=== PATIENT | male | born 2000 | race Caucasian/White ===

== ENCOUNTER 2023-02-16 19:49 | Observation (INO) ==
[2023-02-16] MEDS ORDERED: ONDANSETRON INJ 2 MG/ML 2 ML VIAL IV STA (20:07)
[2023-02-16] MEDS ORDERED: SODIUM CHLORIDE 0.9% 1,000 ML IV ONE (20:07)
[2023-02-16] MEDS ORDERED: KETOROLAC TROMETHAMINE 15 MG/ML VIAL IV ONE (20:08)
--- NOTE | 2023-02-16 20:11 | Emergency Department Note ---
Impression & Plan Acute appendicitis, Abdominal pain, Leukocytosis ED Provider Note NAME: SHANNAN IYER AGE: 22 SEX: M : 2000 ARRIVES VIA: Walk-In INFORMANT: Patient ED PROVIDER(S): Pk Sullivan DO CHIEF COMPLAINT: abdominal pain HPI: Patient is a 72-year-old male who presents ER for periumbilical abdominal pain that started today around lunch. He admits to nausea vomiting. No diar raji. Pain comes and goes in waves. It is sharp and stabbing in nature. No previous surgeries. No headache or change in vision. No chest pain or shortness of breath. Only past medical history is asthma. He notes he was positive for COVID about 7 days ago. His roommate is also positive PAST MEDICAL HISTORY:See Below PAST SURGICAL HISTORY:See Below FAMILY HISTORY:See Below SOCIAL HISTORY:See Below HOME MEDICATIONS:See Below ALLERGIES:See Below VITALS:See Below PHYSICAL EXAMINATION: GENERAL: Sitting up in bed, alert, well appearing, well nourished, no distress, non-toxic EYE EXAM: normal conjunctiva. OROPHARYNX: no exudate, no erythema, lips, buccal mucosa, and tongue normal and mucous membranes are moist NECK: supple, no nuchal rigidity, no adenopathy, non-tender LUNGS: Clear to auscultation. Normal chest wall mechanics HEART: no murmurs, S1 normal and S2 normal ABDOMEN: abdomen soft, tenderness in the right lower quadrant, normo-active bowel sounds, no masses, no rebound or guarding. UPPER EXTREMITIES: upper extremities are grossly normal. LOWER EXTREMITIES: No pitting edema. NEURO EXAM: Normal sensorium, cranial nerves II-XII grossly intact, normal speech, no gross weakness of arms, no gross weakness of legs. MEDICAL DECISION MAKING: Patient is a 22-year-old male who presents the ER for the above-stated complaint. IV was established blood work was obtained. Labs show mild leukocytosis of 14,000. No significant anemia. BMP with LFTs bilirubin was unremarkable. Lipase was normal. UA was negative. CT abdomen pelvis confirms acute appendicitis. He was given IV fluids and antibiotics. Updated bedside. Also updated parents at bedside. Discussed with general surgery and he evaluated the patient and they will go to the OR. Triage Nursing notes reviewed. Limited review of prior medical records performed Vital Signs: reviewed and remarkable for no significant abnormalities Differential diagnosis: Differential diagnoses includes but is not limited to gastritis, peptic ulcer disease, GERD, gallbladder disease, pancreatitis, small bowel obstruction, appendicitis, diverticulitis, hernia, urinary tract infection, torsion, perforation, trauma, infectious. ER treatment provided: See below Diagnostics interpreted by me include EKG and cardiac monitoring as listed below: -Cardiac Monitoring: An order was placed for continuous cardiac monitoring. The monitor shows a rate of 70 with sinus rhythm. -ECG: none -Laboratory studies:Interpreted by me as stated above in MDM and shown below. Imaging studies: Xrays: As interpreted by me:none CTs show: none Consultation(s): As described in MDM Procedures:none Critical Care: None Past Med/Surg History Medical History No pertinent past medical history Social History Smoking Status: Never smoker Preferred Language: Singaporean Feels Safe at Home: Yes Allergies Allergies Allergy/AdvReac Type Severity Reaction Status Date / Time No Known Allergies Allergy Verified 02/16/23 20:47 Home Meds Home Medications Medication Instructions Recorded Confirmed albuterol sulfate 90 mcg/actuation 2 puff inhalation DIRECTED PRN 02/16/23 02/16/23 aerosol inhaler Shortness Of Breath Or Wheezing Results & Data (ED) Vital Signs Vital Signs - 24 hr 02/16/23 19:56 02/16/23 20:11 02/16/23 23:17 Temperature 36.9 C Temperature Source Temporal Artery Scan Pulse Rate 82 Pulse Rate [Apical] 72 Respiratory Rate 18 18 Respiratory Effort / Characteristics Non-Labored Spontaneous Respiratory Depth Normal Blood Pressure 122/75 Blood Pressure [Left Arm] 113/63 Blood Pressure Mean 90 Blood Pressure Mean [Left Arm] 79 Pulse Oximetry 98 94 100 Oxygen Delivery Method Room Air Room Air Room Air Sepsis Recent Fever Within 48 Hours Yes Sepsis New/Unexplained Change in Mental Status No Sepsis Action Taken by Nursing No Action Required 02/16/23 23:40 Temperature Temperature Source Pulse Rate 63 Pulse Rate [Apical] Respiratory Rate Respiratory Effort / Characteristics Respiratory Depth Blood Pressure Blood Pressure [Left Arm] Blood Pressure Mean Blood Pressure Mean [Left Arm] Pulse Oximetry Oxygen Delivery Method Sepsis Recent Fever Within 48 Hours Sepsis New/Unexplained Change in Mental Status Sepsis Action Taken by Nursing Laboratory Data 02/16/23 20:15 02/16/23 20:15 Lab Results 02/16/23 02/16/23 02/16/23 Range/Units 20:15 20:15 20:15 WBC 14.86 H (4.8-10.8) K/ul RBC 4.67 L (4.70-6.10) M/uL Hgb 14.0 (14.0-18.0) g/dl Hct 39.6 L (42.0-52.0) % MCV 84.8 (80.0-100.0) fL MCH 30.0 (25.0-34.0) pg MCHC 35.4 (32.0-36.0) g/dL RDW Std Deviation 35.8 L (36.4-46.3) fL RDW Coeff of Sunitha 11.7 (11.5-14.5) % Plt Count 220 (130-400) K/uL MPV 9.3 L (9.4-12.4) fL Immature Gran % (Auto) 0.5 % Neut % (Auto) 86.7 % Lymph % (Auto) 3.2 % [place] % (Auto) 9.4 % Eos % (Auto) 0.1 % Baso % (Auto) 0.1 % Neut # (Auto) 12.89 H (1.40-6.50) K/uL Lymph # (Auto) 0.47 L (1.20-3.40) K/uL [place] # (Auto) 1.40 H (0.11-0.59) K/uL Eos # (Auto) 0.01 (0.00-0.50) K/uL Baso # (Auto) 0.02 (0.00-0.20) K/uL Immature Gran # (Auto) 0.07 (0.01-0.20) K/uL Sodium 133 L (136-145) mmol/L Potassium 3.8 (3.5-5.1) mmol/L Chloride 99 (98-107) mmol/L Carbon Dioxide 26 (21-32) mmol/L Anion Gap 8 (3-11) BUN 18 (6-23) mg/dl Creatinine 1.09 (0.6-1.4) mg/dl Est Cr Clr Drug Dosing 110.7 ml/min Est GFR ( Amer) 111.9 ml/min Est GFR (Non-Af Amer) 96.5 ml/min BUN/Creatinine Ratio 16.5 (10-20) Glucose 154 H (70-99(Fasting)) mg/dl Calcium 9.3 (8.6-10.3) mg/dl Total Bilirubin 1.1 H (0.2-1.0) mg/dl AST 21 (13-39) U/L ALT 17 (7-52) U/L Alkaline Phosphatase 68 (34-104) U/L Total Protein 7.1 (6.0-8.3) gm/dl Albumin 4.8 (3.4-5.0) gm/dl Globulin 2.3 L (2.5-4.0) gm/dl Albumin/Globulin Ratio 2.1 H (0.9-2) Lipase 5 L (11-82) U/L Urine Color Yellow Urine Appearance Clear (Clear) Urine pH 8.5 H (4.5-7.5) Ur Specific [place] 1.021 (1.000-1.030) Urine Protein Negative (Negative) Urine Glucose (UA) Negative (Negative) Urine Ketones Negative (Negative) Urine Blood Negative (Negative) Urine Nitrite Negative (Negative) Urine Bilirubin Negative (Negative) Urine Urobilinogen Negative (Negative) Ur Leukocyte Esterase Negative (Negative) Administered Medications Discontinued Medications Sodium Chloride (Nss) 1,000 mls @ 999 mls/hr IV .Q1H1M ONE Stop: 02/16/23 21:07 Last Infusion: 02/16/23 22:49 Dose: 0 mls/hr Documented By: Admin: 02/16/23 21:27 Dose: 999 mls/hr Documented By: QGV Cefoxitin Sodium (Mefoxin) 2,000 mg in 60 mls @ 100 mls/hr IV NOW STA Stop: 02/17/23 00:15 Last Admin: 02/16/23 23:59 Dose: 100 mls/hr Documented By: BS Ioversol (Optiray 320 100ml) 89 ml IV ONCE ONE Stop: 02/16/23 20:31 Last Admin: 02/16/23 20:30 Dose: 89 ml Documented By: EAMariela Ketorolac Tromethamine (Ketorolac Tromethamine 15 Mg/Ml Vial) 15 mg IV NOW ONE Stop: 02/16/23 20:09 Last Admin: 02/16/23 20:15 Dose: 15 mg Documented By: QGV Ondansetron HCl (Ondansetron Inj 2 Mg/Ml 2 Ml Vial) 4 mg IV NOW STA Stop: 02/16/23 20:08 Last Admin: 02/16/23 20:15 Dose: 4 mg Documented By: QGV Imaging Data Radiologist's Impression: Abdomen/Pelvis CT 02/16/23 20:07 CT SCAN OF THE ABDOMEN AND PELVIS WITH IV CONTRAST CLINICAL HISTORY: Periumbilical abdominal pain. Vomiting. COMPARISON STUDY: No priors. TECHNIQUE: Following the IV administration of 89 cc of Optiray 320, CT scan of the abdomen and pelvis is performed from the lung bases to the proximal femora. Images are reviewed in the axial, sagittal, and coronal planes. IV contrast was administered without complication. A dose lowering technique was utilized adhering to the principles of ALARA. CT DOSE: 635.97 mGy.cm FINDINGS: Lung bases: The heart is normal in size and without pericardial effusion. The lung bases are clear. Liver: The contrast-enhanced liver is normal in size, contour, and attenuation. There is no intrahepatic biliary ductal dilatation. The hepatic veins and portal veins are patent. Gallbladder: Unremarkable. Spleen: Normal in size and attenuation. Pancreas: Unremarkable. Adrenal glands: Unremarkable. Kidneys: The contrast enhanced kidneys are normal in size and without hydronephrosis. The kidneys enhance symmetrically. Abdominal vasculature: The abdominal aorta is normal in course and caliber. Bowel: There is no bowel obstruction. Mild to moderate fecal retention is seen throughout the colon. The appendix appears dilated and fluid-filled, measuring up to 9 mm in diameter as seen on axial image #242. The appendiceal wall appears mildly thickened and there is faint periappendiceal inflammation. Peritoneum: There is no intraperitoneal free air or abdominal ascites. Lymphadenopathy: None. Pelvic viscera: The bladder is decompressed and appears thick-walled. The prostate and seminal vesicles are normal as visualized. Skeletal structures: No lytic or blastic lesions are seen. IMPRESSION: 1. Findings are suspicious for mild acute appendicitis. Surgical evaluation is advised. 2. There is no evidence of abscess or perforation. 3. The bladder is decompressed and appears thick-walled. Correlate with clinical findings and urinalysis. 4. Additional findings as above. ACT 112: Negative or not required by law. Electronically signed by: Elio Paredes M.D. 02/16/2023 11:35 PM Discharge Plan Visit Data Chief Complaint: Abdominal Pain Stated Complaint: ADOMINAL PAIN, VOMITING ED Provider: Pk Sullivan Discharge Problem: Acute appendicitis, Abdominal pain, Leukocytosis Forms Stand Alone Forms: [facility] Prescriptions Prescriptions: No Action albuterol sulfate 90 mcg/actuation Hfa Aerosol Inhaler 2 puff INHALATION DIRECTED PRN (Reason: Shortness Of Breath Or Wheezing) Referrals [facility] [Non-Staff] -
[2023-02-16 20:24] LABS: Basophils # (auto) 0.02 K/uL (0.00-0.20); Basophils % (auto) 0.1 %; Eosinophils # (auto) 0.01 K/uL (0.00-0.50); Eosinophils % (auto) 0.1 %; Hematocrit (blood only) 39.6 % (42.0-52.0); Immature Granulocytes # (auto) 0.07 K/uL (0.01-0.20); Immature Granulocytes % (auto) 0.5 %; Lymphocytes # (auto) 0.47 K/uL (1.20-3.40); Lymphocytes % (auto) 3.2 %; Mean Corpuscular Hgb Conc 35.4 g/dL (32.0-36.0); Mean Corpuscular Volume 84.8 fL (80.0-100.0); Mean Platelet Volume 9.3 fL (9.4-12.4); Monocytes % (auto) 9.4 %; Neutrophils # (auto) 12.89 K/uL (1.40-6.50); Neutrophils % (auto) 86.7 %; Platelet Count 220 K/uL (130-400); RDW Coefficient of Variation 11.7 % (11.5-14.5); RDW Standard Deviation 35.8 fL (36.4-46.3); Red Blood Count 4.67 M/uL (4.70-6.10); White Blood Count 14.86 K/ul (4.8-10.8)
[2023-02-16 20:30] LABS: Appearance Urine Clear (Clear); Bilirubin Urine Negative (Negative); Blood Urine Negative (Negative); Color Urine Yellow; Glucose Urine UA Negative (Negative); Ketones Urine Negative (Negative); Leukocyte Esterase Urine Negative (Negative); Nitrite Urine Negative (Negative); Protein Urine Negative (Negative); Specific Gravity Urine 1.021 (1.000-1.030); Urobilinogen Urine Negative (Negative); pH Urine 8.5 (4.5-7.5)
[2023-02-16] MEDS ORDERED: OPTIRAY 320 100ml IV ONE (20:30)
[2023-02-16 20:37] LABS: Albumin Level 4.8 gm/dl (3.4-5.0); Bilirubin,Total 1.1 mg/dl (0.2-1.0); Calcium 9.3 mg/dl (8.6-10.3); Potassium 3.8 mmol/L (3.5-5.1)
[2023-02-16 20:44] LABS: Albumin Globulin Ratio 2.1 (0.9-2); BUN Creatinine Ratio 16.5 (10-20); Creatinine Clr Calc Pharmacy 110.7 ml/min; Est GFR (African American) 111.9 ml/min; Est GFR (Non-African American) 96.5 ml/min; Globulin 2.3 gm/dl (2.5-4.0); Total Protein 7.1 gm/dl (6.0-8.3)
--- NOTE | 2023-02-16 23:38 | CT Scan Report ---
CT SCAN OF THE ABDOMEN AND PELVIS WITH IV CONTRAST CLINICAL HISTORY: Periumbilical abdominal pain. Vomiting. COMPARISON STUDY: No priors. TECHNIQUE: Following the IV administration of 89 cc of Optiray 320, CT scan of the abdomen and pelvi s is performed from the lung bases to the proximal femora. Images are reviewed in the axial, sagittal , and coronal planes. IV contrast was administered without complication. A dose lowering technique wa s utilized adhering to the principles of ALARA. CT DOSE: 635.97 mGy.cm FINDINGS: Lung bases: The heart is normal in size and without pericardial effusion. The lung bases are clear. Liver: The contrast-enhanced liver is normal in size, contour, and attenuation. There is no intrahepa tic biliary ductal dilatation. The hepatic veins and portal veins are patent. Gallbladder: Unremarkable. Spleen: Normal in size and attenuation. Pancreas: Unremarkable. Adrenal glands: Unremarkable. Kidneys: The contrast enhanced kidneys are normal in size and without hydronephrosis. The kidneys enh ance symmetrically. Abdominal vasculature: The abdominal aorta is normal in course and caliber. Bowel: There is no bowel obstruction. Mild to moderate fecal retention is seen throughout the colon. The appendix appears dilated and fluid-filled, measuring up to 9 mm in diameter as seen on axial imag e #242. The appendiceal wall appears mildly thickened and there is faint periappendiceal inflammation . Peritoneum: There is no intraperitoneal free air or abdominal ascites. Lymphadenopathy: None. Pelvic viscera: The bladder is decompressed and appears thick-walled. The prostate and seminal vesicl es are normal as visualized. Skeletal structures: No lytic or blastic lesions are seen. IMPRESSION: 1. Findings are suspicious for mild acute appendicitis. Surgical evaluation is advised. 2. There is no evidence of abscess or perforation. 3. The bladder is decompressed and appears thick-walled. Correlate with clinical findings and urinaly sis. 4. Additional findings as above. ACT 112: Negative or not required by law. Electronically signed by: Elio Paredes M.D. 02/16/2023 11:35 PM
[2023-02-16] MEDS ORDERED: cefOXitin 2,000 MG/60 ML BAG IV STA (23:40)
--- NOTE | 2023-02-17 00:41 | Surgery Consultation ---
Date of Consultation February 17, 2023 Assessment & Plan (1) Acute appendicitis: Assessment: Patient is a 22 years old gentleman who presented to the ED with a 12-hour history of periumbilical pain. Recent nausea and vomiting. WBC 14,000. CT scan diagnosis possible early acute appendicitis. Plan: I recommend to do a laparoscopy appendectomy possible open. I did talk to patient and patient father about benefits the risk and alternatives of the procedure. I indicated the risks may include but not limited to such as bleeding, infection, abscess, injury to other organs, incisional hernia, bowel obstruction. Patient and his father understand. they agreed to proceed procedure. Patient signed informed consent. I answered all questions. pre-op IV antibiotic. History of Present Illness Reason for Consultation: Acute appendicitis Requesting Physician: Pk Santana History of Present Illness CC: Acute abdominal pain HPI: Patient is a 22 years old gentleman who presented to ED with 12-hour history of periumbilical pain, with nausea and vomiting. The pain was a sharp around the periumbilical area. The pain does not radiate to the back. Patient denies any fever or chills. No diarrhea. No chest pain. No shortness of breath. Patient reports positive for COVID 7 days ago. He is a roommate also positive. Now patient denies any cough. Labs shows WBC 14,000. CT scan showed-early acute appendicitis. Allergies Allergy/AdvReac Type Severity Reaction Status Date / Time No Known Allergies Allergy Verified 02/16/23 20:47 Home Medications Medication Instructions Recorded Confirmed Type albuterol sulfate 90 mcg/actuation 2 puff inhalation DIRECTED PRN 02/16/23 02/16/23 History aerosol inhaler Shortness Of Breath Or Wheezing Patient History Medical History No pertinent past medical history Social History Smoking Status: Never smoker Preferred Language: Serbian Feels Safe at Home: Yes Review of Systems Constitutional: as per Subjective / HPI Eyes: as per Subjective / HPI Respiratory: Asthma Cardiovascular: as per Subjective / HPI Gastrointestinal: as per Subjective / HPI Genitourinary: + as per Subjective / HPI Musculoskeletal: as per Subjective / HPI Neurologic: as per Subjective / HPI Psychiatric: as per Subjective / HPI Endocrine: as per Subjective / HPI Physical Exam Constitutional: WD/WN, vitals as above Eyes: PERRL, conjunctivae normal, anicteric sclerae Neck: trachea midline, no thyromegaly Respiratory: normal respiratory effort, lungs clear to auscultation Cardiovascular: RRR, no murmur, no edema Gastrointestinal (Abdomen): soft. tenderness at RLQ, no rebound pain, no distend, BS +. Musculoskeletal: no cyanosis or clubbing, extremities motor strength 5/5 Neurologic: patellar DTR's 2+ bilat, sensation intact Psychiatric: A+Ox3, euthymic affect Results & Data Vital Signs (Past 12 Hours) Vital Signs Temp Pulse Pulse Resp BP BP Pulse Ox 02/16/23 23:40 63 02/16/23 23:17 72 18 113/63 100 02/16/23 20:11 94 02/16/23 19:56 36.9 C 82 18 122/75 98 O2 Del Method 02/16/23 23:40 02/16/23 23:17 Room Air 02/16/23 20:11 Room Air 02/16/23 19:56 Room Air Laboratory Results Lab Results 02/16/23 02/16/23 02/16/23 Range/Units 20:15 20:15 20:15 WBC 14.86 H (4.8-10.8) K/ul RBC 4.67 L (4.70-6.10) M/uL Hgb 14.0 (14.0-18.0) g/dl Hct 39.6 L (42.0-52.0) % MCV 84.8 (80.0-100.0) fL MCH 30.0 (25.0-34.0) pg MCHC 35.4 (32.0-36.0) g/dL RDW Std Deviation 35.8 L (36.4-46.3) fL RDW Coeff of Sunitha 11.7 (11.5-14.5) % Plt Count 220 (130-400) K/uL MPV 9.3 L (9.4-12.4) fL Immature Gran % (Auto) 0.5 % Neut % (Auto) 86.7 % Lymph % (Auto) 3.2 % [place] % (Auto) 9.4 % Eos % (Auto) 0.1 % Baso % (Auto) 0.1 % Neut # (Auto) 12.89 H (1.40-6.50) K/uL Lymph # (Auto) 0.47 L (1.20-3.40) K/uL [place] # (Auto) 1.40 H (0.11-0.59) K/uL Eos # (Auto) 0.01 (0.00-0.50) K/uL Baso # (Auto) 0.02 (0.00-0.20) K/uL Immature Gran # (Auto) 0.07 (0.01-0.20) K/uL Sodium 133 L (136-145) mmol/L Potassium 3.8 (3.5-5.1) mmol/L Chloride 99 (98-107) mmol/L Carbon Dioxide 26 (21-32) mmol/L Anion Gap 8 (3-11) BUN 18 (6-23) mg/dl Creatinine 1.09 (0.6-1.4) mg/dl Est Cr Clr Drug Dosing 110.7 ml/min Est GFR ( Amer) 111.9 ml/min Est GFR (Non-Af Amer) 96.5 ml/min BUN/Creatinine Ratio 16.5 (10-20) Glucose 154 H (70-99(Fasting)) mg/dl Calcium 9.3 (8.6-10.3) mg/dl Total Bilirubin 1.1 H (0.2-1.0) mg/dl AST 21 (13-39) U/L ALT 17 (7-52) U/L Alkaline Phosphatase 68 (34-104) U/L Total Protein 7.1 (6.0-8.3) gm/dl Albumin 4.8 (3.4-5.0) gm/dl Globulin 2.3 L (2.5-4.0) gm/dl Albumin/Globulin Ratio 2.1 H (0.9-2) Lipase 5 L (11-82) U/L Urine Color Yellow Urine Appearance Clear (Clear) Urine pH 8.5 H (4.5-7.5) Ur Specific [place] 1.021 (1.000-1.030) Urine Protein Negative (Negative) Urine Glucose (UA) Negative (Negative) Urine Ketones Negative (Negative) Urine Blood Negative (Negative) Urine Nitrite Negative (Negative) Urine Bilirubin Negative (Negative) Urine Urobilinogen Negative (Negative) Ur Leukocyte Esterase Negative (Negative) Diagnostic Findings CT SCAN OF THE ABDOMEN AND PELVIS WITH IV CONTRAST CLINICAL HISTORY: Periumbilical abdominal pain. Vomiting. COMPARISON STUDY: No priors. TECHNIQUE: Following the IV administration of 89 cc of Optiray 320, CT scan of the abdomen and pelvis is performed from the lung bases to the proximal femora. Images are reviewed in the axial, sagittal, and coronal planes. IV contrast was administered without complication. A dose lowering technique was utilized adhering to the principles of ALARA. CT DOSE: 635.97 mGy.cm FINDINGS: Lung bases: The heart is normal in size and without pericardial effusion. The lung bases are clear. Liver: The contrast-enhanced liver is normal in size, contour, and attenuation. There is no intrahepatic biliary ductal dilatation. The hepatic veins and portal veins are patent. Gallbladder: Unremarkable. Spleen: Normal in size and attenuation. Pancreas: Unremarkable. Adrenal glands: Unremarkable. Kidneys: The contrast enhanced kidneys are normal in size and without hydronephrosis. The kidneys enhance symmetrically. Abdominal vasculature: The abdominal aorta is normal in course and caliber. Bowel: There is no bowel obstruction. Mild to moderate fecal retention is seen throughout the colon. The appendix appears dilated and fluid-filled, measuring up to 9 mm in diameter as seen on axial image #242. The appendiceal wall appears mildly thickened and there is faint periappendiceal inflammation. Peritoneum: There is no intraperitoneal free air or abdominal ascites. Lymphadenopathy: None. Pelvic viscera: The bladder is decompressed and appears thick-walled. The prostate and seminal vesicles are normal as visualized. Skeletal structures: No lytic or blastic lesions are seen. IMPRESSION: 1. Findings are suspicious for mild acute appendicitis. Surgical evaluation is advised. 2. There is no evidence of abscess or perforation. 3. The bladder is decompressed and appears thick-walled. Correlate with clinical findings and urinalysis. 4. Additional findings as above.
--- NOTE | 2023-02-17 00:44 | History & Physical Bridge Note ---
Date of Service February 17, 2023 History & Physical Bridge Note I have examined the patient, reviewed the History & Physical and in the interval since the performance of the History & Physical I have noted the following changes of clinical significance: no changes noted
--- NOTE | 2023-02-17 00:46 | Anesthesiology Consultation ---
Date of Service February 17, 2023 Assessment & Plan (1) Encounter for pre-operative examination: Chart Review Chart Review: Acceptable Risk for Surgery and Patient NOT seen in Pre Admission Testing Consults Requested none History Surgery Operation Date: 02/17/23 00:10 Proposed Procedures p Laparoscopic Appendectomy - Johanny Canas MD Height/Weight Height: 5 ft 10 in Weight: 73.6 kg Allergies Allergy/AdvReac Type Severity Reaction Status Date / Time No Known Allergies Allergy Verified 02/16/23 20:47 Medications Home Medications Medication Instructions Recorded Confirmed Last Taken albuterol sulfate 90 mcg/actuation 2 puff inhalation DIRECTED PRN 02/16/23 02/16/23 Unknown aerosol inhaler Shortness Of Breath Or Wheezing Past Medical History Medical History No pertinent past medical history Social History Smoking Status: Never smoker Physical Exam Vital Signs Last Vital Signs Temp 98.4 F 02/16/23 19:56 Pulse 63 02/16/23 23:40 Resp 18 02/16/23 23:17 BP 113/63 02/16/23 23:17 Pulse Ox 100 02/16/23 23:17 O2 Del Method Room Air 02/16/23 23:17 Testing Laboratory Results 02/16/23 20:15 02/16/23 20:15 Urine Color Yellow 02/16/23 20:15 Urine Appearance Clear (Clear) 02/16/23 20:15 Urine pH 8.5 (4.5-7.5) H 02/16/23 20:15 Ur Specific [place] 1.021 (1.000-1.030) 02/16/23 20:15 Urine Protein Negative (Negative) 02/16/23 20:15 Urine Glucose (UA) Negative (Negative) 02/16/23 20:15 Urine Ketones Negative (Negative) 02/16/23 20:15 Urine Nitrite Negative (Negative) 02/16/23 20:15 Ur Leukocyte Esterase Negative (Negative) 02/16/23 20:15
[2023-02-17] MEDS ORDERED: ROCURONIUM BROMIDE 10 MG/ML 5 ML VIAL IV ONE (00:49)
[2023-02-17] MEDS ORDERED: DEXAMETHASONE SOD INJ 4 MG/ML VIAL ONE (00:49)
[2023-02-17] MEDS ORDERED: MIDAZOLAM HCL 1 MG/ML 2ML VIAL ONE (00:49)
[2023-02-17] MEDS ORDERED: ONDANSETRON INJ 2 MG/ML 2 ML VIAL ONE (00:49)
[2023-02-17] MEDS ORDERED: fentaNYL citrate PF 100 MCG/2 ML VIAL ONE (00:49)
[2023-02-17] MEDS ORDERED: LIDOCAINE 2% 20 MG/ML 5 ML SYR IV ONE (00:49)
[2023-02-17] MEDS ORDERED: PROPOFOL IV EMULSION 10 MG/ML 20 ML VIAL IV ONE (00:49)
[2023-02-17] MEDS ORDERED: BACITRACIN OINT 14 GM TUBE ONE (01:02)
[2023-02-17] MEDS ORDERED: LIDOCAINE 1% LOCAL 20 ML VIAL ONE (01:03)
[2023-02-17] MEDS ORDERED: BUPIVACAINE 0.5 % 5 MG/1 ML MPF 30ML VIAL ONE (01:03)
[2023-02-17] MEDS ORDERED: ATROPINE SULFATE 0.1 MG/ML 10ML SYR IV PRN (01:36)
[2023-02-17] MEDS ORDERED: fentaNYL citrate PF 100 MCG/2 ML VIAL IV PRN (01:36)
[2023-02-17] MEDS ORDERED: ONDANSETRON INJ 2 MG/ML 2 ML VIAL IV PRN (01:36)
[2023-02-17] MEDS ORDERED: ePHEDrine sulfate 50 MG/ML AMP IV PRN (01:36)
[2023-02-17] MEDS ORDERED: SUCCINYLCHOLINE CHLORIDE 20 MG/ML 10 ML VIAL IV ONE (02:15)
[2023-02-17] MEDS ORDERED: SUGAMMADEX SODIUM 200 MG/2 ML VIAL IV ONE (02:15)
--- NOTE | 2023-02-17 02:40 | Post Operative Brief Note ---
Immediate Post Op Note v1 Date of Surgery February 17, 2023 Pre & Post Diagnosis Operation Date: 02/17/23 00:10 Pre-Op Diagnosis: Acute appendicitis Post-Op Diagnosis: Acute appendicitis I identified the patient and participated in the time-out.: Yes Procedure Operation Date: 02/17/23 00:10 Actual Procedures p Laparoscopic Appendectomy - Johanny Canas MD Surgeon Johanny Canas MD [employer] Teacher surgical nurse practitioner Estimated Blood Loss 10 Findings Consistent with Post-Op Diagnosis acute appendicitis Fluids 800ml Specimens appendix Anesthesia Type General Complications none Disposition Accompanied Patient To Recovery: Yes
--- NOTE | 2023-02-17 02:57 | Anesthesiology Progress Note ---
Date of Service February 17, 2023 Anesthesia Post Procedure Vital Signs Vital Signs: Temp Pulse Pulse Resp BP BP Pulse Ox 02/17/23 02:45 98.2 F 94 H 18 138/56 L 97 02/16/23 23:40 63 02/16/23 23:17 72 18 113/63 100 02/16/23 20:11 94 02/16/23 19:56 98.4 F 82 18 122/75 98 O2 Del Method 02/17/23 02:45 Room Air 02/16/23 23:40 02/16/23 23:17 Room Air 02/16/23 20:11 Room Air 02/16/23 19:56 Room Air Pain Intensity Left Lower Abdomen: Pain Intensity: 3 Transfer of Care Handoff Completed per policy Notes Mental Status: alert / awake / arousable and participated in evaluation Patient Amnestic to Procedure: Yes Nausea / Vomiting: adequately controlled Pain: adequately controlled Airway Patency, RR, SpO2: stable & adequate BP & HR: stable & adequate Hydration State: stable & adequate Anesthetic Complications: no major complications apparent and Pt Satisfied with anesthetic care
--- NOTE | 2023-02-17 02:59 | Operative Report ---
Post Operative Report Pre & Post Diagnosis Operation Date: 02/17/23 00:10 Pre-Op Diagnosis: Acute appendicitis Post-Op Diagnosis: Acute appendicitis I identified the patient and participated in the time-out.: Yes Procedure Operation Date: 02/17/23 00:10 Actual Procedures p Laparoscopic Appendectomy(Not Applicable) - Johanny Canas MD Surgeon Johanny Canas MD [employer] Officer rn surgical Estimated Blood Loss 10 Findings Consistent with Post-Op Diagnosis Acute appendicitis Fluids 800ml Specimens appendix Drains none Anesthesia Type General Complications none Indications Patient is a 22 years old gentleman who presented to ED with a 12 hours history of abdominal pain. Patient had a CT scan diagnosis acute appendicitis. I recommend to do a laparoscopy appendectomy, possible open. I did talk to patient and patient father about the benefit the risk and alternatives of the procedure. I indicated the risks may include but not limited such as a bleeding, infection, abscess, injury to other organs, bowel obstruction, incisional hernia. Patient and his father understand. He signed informed consent. I answered all questions. Description of Procedure After we identified patient to verify procedure. We brought patient to the OR. Put the patient on the supine position on the OR table. Patient received a SCD on bilateral legs to prevent DVT. Also patient received 2 gram cefoxitin IV for prophylactic antibiotic. Patient received general anesthesia without difficulty. The abdomen was propped and dropped in routine sterile fashion. After timeout. I injections of local anesthesia by using 1% lidocaine mixed with 0.5% Marcaine just above the umbilical area. The make a small incisions as above umbilical, open fascia and peritoneum under direct vision. put The Farris trocar in. Connected to CO2 to create pneumoperitoneum, the flow rate is 6 L/min. Pressure no more than 14 mmHg. Once get nice pneumoperitoneum. Put a scopy in to take look around the abdomen. Significant inflammation on the right lower quadrant area. then we put other two 5 mm trocars on the left lower quadrant area. We used a grasper to to hold cecum area. We found the patient had enlarge appendix with inflammation on appendix, which confirm diagnosis acute appendicitis. We mobilized the appendix by using a harmonic to take down the appendiceal. I used the Endo CASI staple transection on the base of appendix. With double identified the base of appendix. Recheck and no active bleeding or leak from staplers. We remove appendix through the catheter bag. then re-inserted a Farris trocar IN and connected to CO2 to create pneumoperitoneum again. Hemostat is obtained. We removed all trocars under direct vision no active bleeding from trocar site. Pneumoperitoneum was released. Close umbilical incision fascia layer by using 0 Vicryl [id number] x2. Closed subcutaneous layer by using 2-0 Vicryl interrupted. Close skin by using 4-0 Vicryl. Close another 5 mm trocar site the skin only by use of 4-0 Vicryl. Put the dressing on. Remove Donato catheter. Patient tolerated procedure well. All instrument needle sponge count correct x2 in the case. Patient was transferred to recovery room in stable condition. Specimen sent to pathology. After procedure I did talk to patient and the patient and family member about the OR finding and the procedure we did. They understood. I attest to the content of the Intraoperative Record and any orders documented therein. Any exceptions are noted below.
[2023-02-17] MEDS ORDERED: ALBUTEROL HFA 8 GM INHALER INH PRN (03:42)
[2023-02-17] MEDS ORDERED: LACTATED RINGER'S 1,000 ML IV SCH (03:42)
[2023-02-17] MEDS ORDERED: HYDROmorphone INJ 0.5 MG/0.5 ML SYR IV PRN (03:42)
[2023-02-17] MEDS: oxyCODONE/ACETAMINOPHEN 5mg/325mg TAB PO PRN ×2 (04:04→11:55)
--- NOTE | 2023-02-17 10:50 | Surgery Progress Note ---
Date of Service February 17, 2023 Assessment & Plan (1) Acute appendicitis: Plan: Assessment: Patient is a 22 years old gentleman who presented to the ED with a 12-hour history of periumbilical pain. Recent nausea and vomiting. WBC 14,000. CT scan diagnosis possible early acute appendicitis. Plan: I recommend to do a laparoscopy appendectomy possible open. I did talk to patient and patient father about benefits the risk and alternatives of the procedure. I indicated the risks may include but not limited to such as bleeding, infection, abscess, injury to other organs, incisional hernia, bowel obstruction. Patient and his father understand. they agreed to proceed procedure. Patient signed informed consent. I answered all questions. pre-op IV antibiotic. 02/17/2023 10:49 AM, F/U S/P lap appy for acute appendicitis. POD 8 hours. pt feels much better, less abdominal pain, tolerated diet, no nausea, no vomiting, no fever. I update about OR finding and the surgery pt had, pt understood, I answered all questions. pt wants to go home today, I give pt post-op care instruction, F/U me 2 weeks, Admission and Anticipated Discharge Date Admission Date: February 17, 2023 Subjective F/U S/P lap appy for acute appendicitis. POD 8 hours. pt feels much better, less abdominal pain, tolerated diet, no nausea, no vomiting, no fever. Review of Systems Constitutional: as per Subjective / HPI Eyes: as per Subjective / HPI Respiratory: Asthma Cardiovascular: as per Subjective / HPI Gastrointestinal: as per Subjective / HPI Genitourinary: + as per Subjective / HPI Musculoskeletal: as per Subjective / HPI Neurologic: as per Subjective / HPI Psychiatric: as per Subjective / HPI Endocrine: as per Subjective / HPI Physical Exam Constitutional: WD/WN, vitals as above Eyes: PERRL, conjunctivae normal, anicteric sclerae Neck: trachea midline, no thyromegaly Respiratory: normal respiratory effort, lungs clear to auscultation Cardiovascular: RRR, no murmur, no edema Gastrointestinal (Abdomen): soft. mild tenderness at incision sites, no rebound pain, no distend, all incisions intact, no redness, BS +. Musculoskeletal: no cyanosis or clubbing, extremities motor strength 5/5 Neurologic: patellar DTR's 2+ bilat, sensation intact Psychiatric: A+Ox3, euthymic affect Results & Data Vital Signs (Past 12 Hours) Vital Signs Temp Pulse Pulse Pulse Resp BP Pulse Ox 02/17/23 03:30 37 C 73 18 120/62 98 02/17/23 06:49 36.8 C 61 18 103/61 96 02/17/23 05:39 36.9 C 57 L 18 111/62 97 02/17/23 04:37 36.9 C 76 18 118/72 98 02/17/23 04:01 37 C 71 16 115/70 97 02/17/23 03:30 37 C 73 18 120/62 98 02/17/23 03:05 36.8 C 84 16 127/70 96 02/17/23 02:55 74 20 102/57 L 99 02/17/23 02:45 36.8 C 94 H 18 138/56 L 97 02/16/23 23:40 63 02/16/23 23:17 72 18 113/63 100 O2 Del Method 02/17/23 03:30 Room Air 02/17/23 06:49 Room Air 02/17/23 05:39 Room Air 02/17/23 04:37 Room Air 02/17/23 04:01 Room Air 02/17/23 03:30 Room Air 02/17/23 03:05 Room Air 02/17/23 02:55 Room Air 02/17/23 02:45 Room Air 02/16/23 23:40 02/16/23 23:17 Room Air Laboratory Results Lab Results 02/16/23 02/16/23 02/16/23 Range/Units 20:15 20:15 20:15 WBC 14.86 H (4.8-10.8) K/ul RBC 4.67 L (4.70-6.10) M/uL Hgb 14.0 (14.0-18.0) g/dl Hct 39.6 L (42.0-52.0) % MCV 84.8 (80.0-100.0) fL MCH 30.0 (25.0-34.0) pg MCHC 35.4 (32.0-36.0) g/dL RDW Std Deviation 35.8 L (36.4-46.3) fL RDW Coeff of Sunitha 11.7 (11.5-14.5) % Plt Count 220 (130-400) K/uL MPV 9.3 L (9.4-12.4) fL Immature Gran % (Auto) 0.5 % Neut % (Auto) 86.7 % Lymph % (Auto) 3.2 % [place] % (Auto) 9.4 % Eos % (Auto) 0.1 % Baso % (Auto) 0.1 % Neut # (Auto) 12.89 H (1.40-6.50) K/uL Lymph # (Auto) 0.47 L (1.20-3.40) K/uL [place] # (Auto) 1.40 H (0.11-0.59) K/uL Eos # (Auto) 0.01 (0.00-0.50) K/uL Baso # (Auto) 0.02 (0.00-0.20) K/uL Immature Gran # (Auto) 0.07 (0.01-0.20) K/uL Sodium 133 L (136-145) mmol/L Potassium 3.8 (3.5-5.1) mmol/L Chloride 99 (98-107) mmol/L Carbon Dioxide 26 (21-32) mmol/L Anion Gap 8 (3-11) BUN 18 (6-23) mg/dl Creatinine 1.09 (0.6-1.4) mg/dl Est Cr Clr Drug Dosing 110.7 ml/min Est GFR ( Amer) 111.9 ml/min Est GFR (Non-Af Amer) 96.5 ml/min BUN/Creatinine Ratio 16.5 (10-20) Glucose 154 H (70-99(Fasting)) mg/dl Calcium 9.3 (8.6-10.3) mg/dl Total Bilirubin 1.1 H (0.2-1.0) mg/dl AST 21 (13-39) U/L ALT 17 (7-52) U/L Alkaline Phosphatase 68 (34-104) U/L Total Protein 7.1 (6.0-8.3) gm/dl Albumin 4.8 (3.4-5.0) gm/dl Globulin 2.3 L (2.5-4.0) gm/dl Albumin/Globulin Ratio 2.1 H (0.9-2) Lipase 5 L (11-82) U/L Urine Color Yellow Urine Appearance Clear (Clear) Urine pH 8.5 H (4.5-7.5) Ur Specific [place] 1.021 (1.000-1.030) Urine Protein Negative (Negative) Urine Glucose (UA) Negative (Negative) Urine Ketones Negative (Negative) Urine Blood Negative (Negative) Urine Nitrite Negative (Negative) Urine Bilirubin Negative (Negative) Urine Urobilinogen Negative (Negative) Ur Leukocyte Esterase Negative (Negative) SARS-CoV-2, RNA, NAAT (NEGATIVE) 02/17/23 Range/Units Unknown WBC (4.8-10.8) K/ul RBC (4.70-6.10) M/uL Hgb (14.0-18.0) g/dl Hct (42.0-52.0) % MCV (80.0-100.0) fL MCH (25.0-34.0) pg MCHC (32.0-36.0) g/dL RDW Std Deviation (36.4-46.3) fL RDW Coeff of Sunitha (11.5-14.5) % Plt Count (130-400) K/uL MPV (9.4-12.4) fL Immature Gran % (Auto) % Neut % (Auto) % Lymph % (Auto) % [place] % (Auto) % Eos % (Auto) % Baso % (Auto) % Neut # (Auto) (1.40-6.50) K/uL Lymph # (Auto) (1.20-3.40) K/uL [place] # (Auto) (0.11-0.59) K/uL Eos # (Auto) (0.00-0.50) K/uL Baso # (Auto) (0.00-0.20) K/uL Immature Gran # (Auto) (0.01-0.20) K/uL Sodium (136-145) mmol/L Potassium (3.5-5.1) mmol/L Chloride (98-107) mmol/L Carbon Dioxide (21-32) mmol/L Anion Gap (3-11) BUN (6-23) mg/dl Creatinine (0.6-1.4) mg/dl Est Cr Clr Drug Dosing ml/min Est GFR ( Amer) ml/min Est GFR (Non-Af Amer) ml/min BUN/Creatinine Ratio (10-20) Glucose (70-99(Fasting)) mg/dl Calcium (8.6-10.3) mg/dl Total Bilirubin (0.2-1.0) mg/dl AST (13-39) U/L ALT (7-52) U/L Alkaline Phosphatase (34-104) U/L Total Protein (6.0-8.3) gm/dl Albumin (3.4-5.0) gm/dl Globulin (2.5-4.0) gm/dl Albumin/Globulin Ratio (0.9-2) Lipase (11-82) U/L Urine Color Urine Appearance (Clear) Urine pH (4.5-7.5) Ur Specific [place] (1.000-1.030) Urine Protein (Negative) Urine Glucose (UA) (Negative) Urine Ketones (Negative) Urine Blood (Negative) Urine Nitrite (Negative) Urine Bilirubin (Negative) Urine Urobilinogen (Negative) Ur Leukocyte Esterase (Negative) SARS-CoV-2, RNA, NAAT POSITIVE A* (NEGATIVE)
--- NOTE | 2023-02-17 11:02 | Discharge Summary ---
Date of Service February 17, 2023 Admission HPI Per Admitting Provider Admission date: February 17, 2023 Discharge date: February 17, 2023 Admission diagnoses: Acute appendicitis operation: Laparoscopy appendectomy Surgeon Johanny Welch The detail of the discharge summary: Patient is a 22 years old gentleman who presented to the OR history of periumbilical pain. Patient had a CT scan diagnosis acute appendicitis. We took patient to the OR. we did a laparoscopy appendectomy. OR finding: acute appendicitis. Patient tolerated procedure well. Patient transferred to regular floor in stable condition. Patient doing fine. No significant abdominal pain. Tolerated diet. No nausea, no vomiting, no fever. Patient will go home today, we gave patient postop care instruction. patient understand. I will follow-up patient in 2 weeks. Admission Exam (Per Admitting) Constitutional WD/WN, vitals as above Eyes PERRL, conjunctivae normal, anicteric sclerae Neck trachea midline, no thyromegaly Respiratory normal respiratory effort, lungs clear to auscultation Cardiovascular RRR, no murmur, no edema Musculoskeletal no cyanosis or clubbing, extremities motor strength 5/5 Neurologic patellar DTR's 2+ bilat, sensation intact Psychiatric A+Ox3, euthymic affect Discharge Data Consultations 02/16/23 23:40 ED Decision to Admit Stat Procedures Performed Operation Date: 02/17/23 00:10 Actual Procedures p Laparoscopic Appendectomy(Not Applicable) - Johanny Canas MD Hospital Course (1) Acute appendicitis: Assessment: Patient is a 22 years old gentleman who presented to the ED with a 12-hour history of periumbilical pain. Recent nausea and vomiting. WBC 14,000. CT scan diagnosis possible early acute appendicitis. Plan: I recommend to do a laparoscopy appendectomy possible open. I did talk to patient and patient father about benefits the risk and alternatives of the procedure. I indicated the risks may include but not limited to such as bleeding, infection, abscess, injury to other organs, incisional hernia, bowel obstruction. Patient and his father understand. they agreed to proceed procedure. Patient signed informed consent. I answered all questions. pre-op IV antibiotic. 02/17/2023 10:49 AM, F/U S/P lap appy for acute appendicitis. POD 8 hours. pt feels much better, less abdominal pain, tolerated diet, no nausea, no vomiting, no fever. I update about OR finding and the surgery pt had, pt understood, I answered all questions. pt wants to go home today, I give pt post-op care instruction, F/U me 2 weeks,
== END 2023-02-17 12:10 | disposition home or self-care (01) ==
LOC: ED 19:49 → 3E 02-17 01:13 → INTOOBSV 02-17 02:44 → 3E 02-17 02:44